=== PATIENT | male | born 1940 | race Caucasian/White ===

== ENCOUNTER 2020-10-17 03:26 | Inpatient (IN) | payer MEDICARE, BC ==
[~2020-10-17] VITALS: Ht 180.3 cm; Wt 90.7 kg
[2020-10-17] MEDS ORDERED: LUMIGAN 0.01%2.5 ML EYELF (05:31)
[2020-10-17] MEDS ORDERED: MULTIVITAMINS1 EAC2 PO (05:33)
[2020-10-17] MEDS ORDERED: AMLODIPINE BESY10 MG PO (05:33)
[2020-10-17] MEDS ORDERED: GLIPIZIDE ER5 MG PO (05:34)
[2020-10-17] MEDS ORDERED: ATORVASTATIN CA10 MG PO (05:35)
[2020-10-17] MEDS ORDERED: ELIQUIS2.5 MG PO (05:35)
[2020-10-17] MEDS ORDERED: LOSARTAN POTAS100 MG PO (05:36)
[2020-10-17 06:55] LABS: HEMOGLOBIN 10.1 gm/dl (14.0-17.5); RED BLOOD COUNT 3.76 M/UL (4.20-5.50); WHITE BLOOD COUNT 9.5 K/UL (4.5-11.0)
[2020-10-17 07:12] LABS: BUN/CREATININE RATIO 27 (0-10)
--- NOTE | 2020-10-17 18:52 | NUR ---
NOTIFIED OF PRO BNP AND CMP RESULTS WITH NO NEW ORDERS NOTED AT THIS TIME
[2020-10-18 03:41] LABS: HEMOGLOBIN 9.9 gm/dl (14.0-17.5); RED BLOOD COUNT 3.66 M/UL (4.20-5.50)
[2020-10-18 03:44] LABS: WHITE BLOOD COUNT 15.1 K/UL (4.5-11.0)
[2020-10-18 10:50] LABS: BORDETELLA PARAPERTUSSIS Not Detected (Not Detectd); BORDETELLA PERTUSSIS Not Detected (Not Detectd); CHLAMYDIA PNEUMONIAE Not Detected (Not Detectd); CORONAVIRUS HKU1 Not Detected (Not Detectd); CORONAVIRUS NL63 Not Detected (Not Detectd); CORONAVIRUS OC43 Not Detected (Not Detectd); CORONOAVIRUS 229E Not Detected (Not Detectd); HUMAN METAPNEUMOVIRUS Not Detected (Not Detectd); HUMAN RHINOVIRUS/ENTEROVIRUS Not Detected (Not Detectd); INFLUENZA A Not Detected (Not Detectd); INFLUENZA B Not Detected (Not Detectd); MYCOPLASMA PNEUMONIAE Not Detected (Not Detectd); PARAINFLUENZA VIRUS 1 Not Detected (Not Detectd); PARAINFLUENZA VIRUS 2 Not Detected (Not Detectd); PARAINFLUENZA VIRUS 3 Not Detected (Not Detectd); PARAINFLUENZA VIRUS 4 Not Detected (Not Detectd); RESPIRATORY SYNCYTIAL VIRUS Not Detected (Not Detectd)
[2020-10-18 12:48] LABS: SARS-CoV-2 NOT DETECTED (Not Detectd)
[2020-10-19 02:57] LABS: HEMOGLOBIN 10.2 gm/dl (14.0-17.5); RED BLOOD COUNT 3.7 M/UL (4.20-5.50); WHITE BLOOD COUNT 14.2 K/UL (4.5-11.0)
[2020-10-20 03:26] LABS: HEMOGLOBIN 9.9 gm/dl (14.0-17.5); RED BLOOD COUNT 3.65 M/UL (4.20-5.50)
[2020-10-20 03:36] LABS: WHITE BLOOD COUNT 9.8 K/UL (4.5-11.0)
[2020-10-20 07:10] LABS: ANTISTREPTOLYSIN O AB 59.2 IU/mL (0.0-200.0); COMPLEMENT C3, SERUM 135 mg/dL (82-167); COMPLEMENT C4, SERUM 27 mg/dL (12-38)
[2020-10-20 08:15] LABS: HBSAG SCREEN Negative (Negative); HEP B CORE AB, TOT Negative (Negative); HEP C VIRUS AB <0.1 (0.0-0.9)
[2020-10-20 16:11] LABS: A/G RATIO 1.1 (0.7-1.7); ALBUMIN 3.6 g/dL (2.9-4.4); ALPHA-1-GLOBULIN 0.4 g/dL (0.0-0.4); BETA GLOBULIN 0.9 g/dL (0.7-1.3); GLOBULIN, TOTAL 3.3 g/dL (2.2-3.9); IMMUNOGLOBULIN A, QN, SERUM 85 mg/dL (61-437); IMMUNOGLOBULIN G, QN, SERUM 1030 mg/dL (603-1613); IMMUNOGLOBULIN M, QN, SERUM 79 mg/dL (15-143); M-SPIKE Not Observed g/dL (Not Observed); PROTEIN, TOTAL, SERUM 6.9 g/dL (6.0-8.5)
[2020-10-20 17:11] LABS: ANTI-DSDNA ANTIBODIES <1 IU/mL (0-9)
[2020-10-21 15:09] LABS: CYTOPLASMIC (C-ANCA) <1:20 titer (Neg:<1:20); PERINUCLEAR (P-ANCA) <1:20 titer (Neg:<1:20)
[2020-10-22] MEDS ORDERED: ELIQUIS 5 MG TAB5 MG PO (17:47)
[2020-10-22] MEDS ORDERED: GLIPIZIDE ER5 MG PO (17:47)
[2020-10-22] MEDS ORDERED: LOPRESSOR 25 MG25 MG PO (17:47)
--- NOTE | 2020-10-23 08:02 | NUR ---
pt sats in 70s on 45 liters airvo i called rt to come adjust in oxygen and he also gave him a breathing tx
--- NOTE | 2020-10-23 16:51 | NUR ---
CALLED REPORT TO [facility], ALSO CALLED WITH HIS DISCHARGE INSTRUCTION,AND APPT , WITH MEDS CHANGES . SHE VERBALIZES ALSO TOLD [facility] MED CHANGES, IV REMOVED PT AWAITING EMS TRANSPORT
[2020-10-24 09:13] LABS: CREATININE, URINE 94.5 mg/dL (Not Estab.)
== END 2020-10-23 18:45 | disposition home health service (06) | DRG 682 ==
LOC: PROG CARE 05:17 → MED SURG 4 05:17 → PROG CARE 05:26 → MED SURG 4 10-21 17:39
PROVIDERS: Internal Medicine; Internal Medicine Nephrology; ADMIT Internal Medicine
DX: N17.9 Acute kidney failure, unspecified (principal); G93.41 Metabolic encephalopathy; I50.33 Acute on chronic diastolic (congestive) heart failure; J96.21 Acute and chronic respiratory failure with hypoxia; I13.0 Hypertensive heart and chronic kidney disease with heart failure and stage 1 through stage 4 chronic kidney disease, or unspecified chronic kidney disease; E87.1 Hypo-osmolality and hyponatremia; Q28.8 Other specified congenital malformations of circulatory system; I48.21 Permanent atrial fibrillation; E11.9 Type 2 diabetes mellitus without complications; I11.9 Hypertensive heart disease without heart failure; Z20.822 Contact with and (suspected) exposure to COVID-19; J44.9 Chronic obstructive pulmonary disease, unspecified; R33.9 Retention of urine, unspecified; E78.5 Hyperlipidemia, unspecified; X58.XXXA Exposure to other specified factors, initial encounter; T38.0X5A Adverse effect of glucocorticoids and synthetic analogues, initial encounter; D63.8 Anemia in other chronic diseases classified elsewhere; D50.9 Iron deficiency anemia, unspecified; D72.828 Other elevated white blood cell count; N18.9 Chronic kidney disease, unspecified; Z79.01 Long term (current) use of anticoagulants; Z86.718 Personal history of other venous thrombosis and embolism; Z79.899 Other long term (current) drug therapy; Z87.891 Personal history of nicotine dependence; Z99.81 Dependence on supplemental oxygen; Z90.49 Acquired absence of other specified parts of digestive tract; Z83.3 Family history of diabetes mellitus; Z82.49 Family history of ischemic heart disease and other diseases of the circulatory system; Z79.52 Long term (current) use of systemic steroids
CPT/HCPCS: ECHO; 36415; 36600; 70551; 71045; 80048; 80053; 81001; 82043; 82140; 82272; 82550; 82553; 82570; 82607; 82746; 82784; 82803; 82962; 83520; 83540; 83550; 83605; 83735; 83880; 83883; 83935; 84100; 84133; 84155; 84156; 84165; 84300; 84439; 84443; 84484; 85025; 85027; 85045; 86038; 86060; 86140; 86160; 86162; 86225; 86256; 86334; 86704; 86706; 86708; 86803; 87040; 87070; 87081; 87205; 87340; 87633; 89050; 93005; 93306; 93971; 94640; 94664; 94760; 97110-GP-CQ; 97116; 97116-GP-CQ; 97161; J0696; J1335; J1756; J1940; J7030; J7050; P9047; U0002

== ENCOUNTER 2020-10-29 20:33 | Inpatient (IN) | payer MEDICARE, BC ==
[~2020-10-29] VITALS: Ht 177.8 cm; Wt 99.8 kg
[~2020-10-29 20:33] MED LIST: AMLODIPINE BESY10 MG PO; ATORVASTATIN CA10 MG PO; ELIQUIS 5 MG TAB5 MG PO; ELIQUIS2.5 MG PO; GLIPIZIDE ER5 MG PO; LOPRESSOR 25 MG25 MG PO; LOSARTAN POTAS100 MG PO; LUMIGAN 0.01%2.5 ML EYELF; MULTIVITAMINS1 EAC2 PO
[2020-10-29] MEDS ORDERED: WARFARIN SODIU2.5 MG PO (22:32)
[2020-10-29] MEDS ORDERED: GLUCOTROL5 MG PO (22:32)
[2020-10-29] MEDS ORDERED: COMBIGAN EYE DRO5 ML EYEBOTH (22:33)
[2020-10-29 23:27] LABS: HEMOGLOBIN 9.5 gm/dl (14.0-17.5); RED BLOOD COUNT 3.45 M/UL (4.20-5.50); WHITE BLOOD COUNT 17.2 K/UL (4.5-11.0)
[2020-10-30] MEDS ORDERED: HYDROCREAM28.4 GM TP (10:40)
[2020-10-30] MEDS ORDERED: XALATAN2.5 ML OP (10:42)
[2020-10-30] MEDS ORDERED: PRESERVISION A1 EAC1 PO (10:43)
[2020-11-02] MEDS ORDERED: ELIQUIS5 MG PO (10:54)
[2020-11-03 06:13] LABS: HEMOGLOBIN 8.9 gm/dl (14.0-17.5); RED BLOOD COUNT 3.26 M/UL (4.20-5.50); WHITE BLOOD COUNT 9.1 K/UL (4.5-11.0)
[2020-11-04 04:30] LABS: HEMOGLOBIN 8.8 gm/dl (14.0-17.5); RED BLOOD COUNT 3.22 M/UL (4.20-5.50); WHITE BLOOD COUNT 8.8 K/UL (4.5-11.0)
[2020-11-04] MEDS ORDERED: BUMETANIDE1 MG PO ×2 (11:42→11:44)
[2020-11-04] MEDS ORDERED: COREG 3.125M3.125 MG PO (11:46)
[2020-11-04] MEDS ORDERED: FLOMAX 0.4 MG0.4 MG PO (12:00)
--- NOTE | 2020-11-04 13:51 | NUR ---
INSTRUCTED ON MED CHANGES NEW SCRIPTS FOR MEDS. HOME [facility] WILL HELP WITH MEDS. KEEP FOLLOW UP APOINTMENTS VERBALIZED UNDERSTANDING. Sarah MATT,
--- NOTE | 2020-11-04 15:17 | NUR ---
1300 - Received call from patient's , stated she wants him to go to Rehab because she is unable to care for him at home since he is so weak. She also said she believed she could talk patient into going to Rehab. Dr Betancur & the transplant case manager, Opal shay.
[2020-11-05 07:01] LABS: HEMOGLOBIN 8.7 gm/dl (14.0-17.5); RED BLOOD COUNT 3.27 M/UL (4.20-5.50); WHITE BLOOD COUNT 8.9 K/UL (4.5-11.0)
[2020-11-06 05:19] LABS: HEMOGLOBIN 8.6 gm/dl (14.0-17.5); RED BLOOD COUNT 3.27 M/UL (4.20-5.50); WHITE BLOOD COUNT 9.7 K/UL (4.5-11.0)
== END 2020-11-06 16:16 | DRG 291 ==
LOC: CCU 20:33 → MED SURG 4 22:24 → CCU 22:40 → MED SURG 4 10-30 15:34
PROVIDERS: Internal Medicine; Internal Medicine Nephrology; ADMIT Family Medicine
DX: I13.0 Hypertensive heart and chronic kidney disease with heart failure and stage 1 through stage 4 chronic kidney disease, or unspecified chronic kidney disease (principal); J96.21 Acute and chronic respiratory failure with hypoxia; I50.33 Acute on chronic diastolic (congestive) heart failure; N17.9 Acute kidney failure, unspecified; E87.2 Acidosis; N39.0 Urinary tract infection, site not specified; E87.1 Hypo-osmolality and hyponatremia; E87.3 Alkalosis; Z20.822 Contact with and (suspected) exposure to COVID-19; E11.22 Type 2 diabetes mellitus with diabetic chronic kidney disease; R33.8 Other retention of urine; E87.5 Hyperkalemia; I50.813 Acute on chronic right heart failure; E86.1 Hypovolemia; N18.30 Chronic kidney disease, stage 3 unspecified; R31.9 Hematuria, unspecified; D63.1 Anemia in chronic kidney disease; N40.0 Benign prostatic hyperplasia without lower urinary tract symptoms; I48.91 Unspecified atrial fibrillation; E11.9 Type 2 diabetes mellitus without complications; J44.9 Chronic obstructive pulmonary disease, unspecified; Z79.01 Long term (current) use of anticoagulants; Z86.16 Personal history of COVID-19; Z86.718 Personal history of other venous thrombosis and embolism; Z99.81 Dependence on supplemental oxygen; Z90.49 Acquired absence of other specified parts of digestive tract; Z79.4 Long term (current) use of insulin; Z87.891 Personal history of nicotine dependence; Z82.49 Family history of ischemic heart disease and other diseases of the circulatory system; Z83.3 Family history of diabetes mellitus
CPT/HCPCS: 36415; 36600; 71045; 80048; 80053; 81001; 82550; 82553; 82728; 82803; 82962; 83540; 83550; 83605; 83880; 84484; 85025; 85027; 85610; 87086; 93005; 94640; 94760; 97110-GP-CQ; 97162; 97166; J0696; J1205; J1940; J7050; U0002